=== PATIENT | male | born 1940 | race Caucasian/White ===

== ENCOUNTER 2017-12-10 20:48 | Inpatient (IN) ==
[2017-12-10 21:28] LABS: Bilirubin,Urine Negative (Negative); Blood,Urine Large (Negative); Clarity,Urine Cloudy (Clear); Color,Urine Yellow (Yellow); Glucose,Urine (UA) Normal (Normal); Ketones,Urine Negative (Negative); Leukocyte Esterase,Urine Trace (Negative); Nitrite,Urine Negative (Negative); Protein,Urine >=300 mg/dL (Neg-Trace); Specific Gravity,Urine >= 1.030 (1.010-1.025); Urobilinogen,Urine Normal (Normal)
[2017-12-10 21:36] LABS: Bacteria,Urine Moderate per hpf (None-Few); Hyaline Casts,Urine Few per lpf (None-Few); Mucus,Urine Moderate (Few); RBC,Urine TNTC per hpf (0-3); Squamous Epithelial Cell,Urine Few per lpf (None-Few)
[2017-12-10 21:37] LABS: WBC,Urine 15-30 per hpf (0-3)
[2017-12-10 21:39] LABS: Renal Epithelial Cells,Urine Few per hpf (None-Few)
--- NOTE | 2017-12-10 22:06 | Emergency Department Note ---
Disposition Clinical Impression: Dysuria, Hyponatremia CHF (congestive heart failure) Qualifiers: Heart failure type: other Qualified Code(s): I50.9 - Heart failure, unspecified Disposition: Admitted As Inpatient Condition: Undetermined Instructions: Heart Failure (ED), Hyponatremia (ED) Referrals: Adan Hamilton DO [Primary Care Provider] - Time of Disposition: 00:00 (Accepted by Dr Milton per family request states that they dont want to drive far to [place] and prefer to be at [place]) Male Urogenital HPI - General Chief complaint: ED General Medical Stated complaint: Decreased urine output, Dyspnea Source: family, EMS Mode of arrival: ambulatory Limitations: no limitations, altered mental status Nursing Notes Reviewed: Yes Vital Signs Reviewed: Yes - History of Present Illness HPI Narrative: Patient is a pleasant 77-year-old male with significant PMH for OH, HTN and dementia who is presenting to [facility] Emergency Room with a chief complaint off dysuria and puffiness of his eyes as well as abdominal distention. The patient daughter states that he was recently treated for pneumonia and was given antibiotics and steroids. She The him twice today and each time she retrieved on the 100 ml. He noticed that he has abdominal distension. Patient himself denies any pain or discomfort. He saw a dormitory keeper which cleared him for 6 month. Patient denies any fever or chills. Pt also denies any eye pain or visual disturbances. There is no sore throat or nasal or facial congestion. There is no chest pain or racing heart. No shortness of breath or cough. There is no abdominal pain, nausea, vomiting or diarrhea. No flank pain. There is no muskulo-skeletal pain, arthralgia or back pain. Patient also denies rash or pruritus. There is no neurological manifestations, no headache, no vertigo or weakness. The patient also denies any depression, hallucinations and there are no homicidal or suicidal ideations. There is no polyuria or polydipsia. There is no easy bruising or bleeding. Review of other systems is otherwise negative except above. Pt Subjective Complaint: dysuria, urinary retention Onset (ago): hour(s) Duration: intermittent Severity scale (1-10): 5 Quality: dull Improves with: none Worsens with: none - Related Data Home Medications Medication Instructions Recorded Confirmed Aspirin [Lo-Dose Aspirin EC] 81 mg PO DAILY 12/20/16 12/07/17 Atorvastatin [Lipitor] 40 mg PO HS 12/20/16 12/07/17 Ferrous Sulfate [Iron] 325 mg PO DAILY 12/20/16 12/07/17 Lisinopril [Zestril] 5 mg PO DAILY 12/20/16 12/07/17 Metoprolol Succinate/Hctz 1 each PO DAILY 12/20/16 12/07/17 [Metoprolol ER-Hctz 25-12.5 mg] Tamsulosin [Flomax] 0.4 mg PO DAILY 12/20/16 12/07/17 Previous Rx's Medication Instructions Recorded Cephalexin [Keflex] 500 mg PO TID #30 capsule 12/07/17 Ondansetron HCl [Zofran] 4 mg PO TID #15 tablet 12/07/17 PredniSONE [Deltasone] 20 mg PO DAILY #12 tablet 12/07/17 Allergies Allergy/AdvReac Type Severity Reaction Status Date / Time codeine Allergy Itching Verified 12/07/17 15:44 All systems ED: reviewed and negative except as stated. Review of Systems: As Per HPI Constitutional: Denies: fever, chills Eyes: Denies: eye pain, eye discharge ENT ED: Denies: ear pain, throat pain Cardiovascular: Denies: chest pain, palpitations Respiratory: Reports: cough, dyspnea Genitourinary: Reports: dysuria Musculoskeletal: Denies: back pain, neck pain Integumentary: Denies: abrasion, lesions Neurological: Denies: headache, weakness Past Medical History - Past Medical History Medical history: Reports: CVA, dementia, hypertension, myocardial infarction Surgical history: Reports: angioplasty/stent, pacemaker/AICD Psychiatric history: Reports: no psych history - Social History Smoking Status: Never smoker Smokeless Tobacco Status: No Alcohol use: Reports: none Drug use: Reports: none Physical Exam - General Limitations: altered mental status General appearance: alert - Head Head exam: normal inspection - Eye Eye exam: Present: normal appearance - ENT ENT exam: normal exam, normal oropharynx, mucous membranes moist, normal external ear exam - Neck Neck exam: Present: normal inspection, full ROM, trachea midline - Chest Chest inspection: Present: normal inspection, symmetric chest wall rise - Respiratory Respiratory exam: Present: normal lung sounds bilaterally, other (Diminished air entry) - Cardiovascular Cardiovascular exam: Present: regular rate, normal rhythm, normal heart sounds - Abdominal Exam Abdominal Exam: Present: soft, Non-Tender - Extremities Exam Extremities exam: Present: normal inspection, full ROM - Back Exam Back exam: Present: normal inspection, full ROM - Neurological Exam Neurological exam: Present: alert, oriented X3, normal gait - Psychiatric Psychiatric exam: Present: normal affect, normal mood - Skin Skin exam: Present: warm, dry, intact, normal color Course Vital Signs Temperature 97.9 F 12/10/17 20:59 Pulse Rate 92 12/10/17 20:59 Respiratory Rate 18 12/10/17 20:59 Blood Pressure 147/108 12/10/17 20:59 O2 Sat by Pulse Oximetry 95 12/10/17 20:59 Temperature 97.9 F 12/10/17 20:59 Pulse Rate 92 12/10/17 21:38 Respiratory Rate 18 12/10/17 21:38 Blood Pressure 142/76 12/10/17 21:38 O2 Sat by Pulse Oximetry 98 12/10/17 21:38 Oxygen Delivery Oxygen Delivery Nasal Cannula Urogenital-Male - MDM Narrative Medical decision making narrative: Stat Cardiopulmonary monitoring lasix IV Hold IVF fluids - Differential Diagnosis Likely: urinary tract infection, priapism, urethritis, epididymitis, acute urinary retention, inguinal hernia - Medical Records Medical records reviewed: Yes I reviewed the patient's medical records. - Lab Data Lab results reviewed: Yes I reviewed the patient's lab results. Lab Results 12/10/17 Range/Units 21:25 Urine Color Yellow (Yellow) Urine Clarity Cloudy A (Clear) Urine pH 6.0 (5.0-8.0) pH Units Ur Specific Hulbert >= 1.030 H (1.010-1.025) Urine Protein >=300 H (Neg-Trace) mg/dL Urine Glucose (UA) Normal (Normal) mg/dL Urine Ketones Negative (Negative) mg/dL Urine Blood Large H (Negative) Urine Nitrite Negative (Negative) Urine Bilirubin Negative (Negative) Urine Urobilinogen Normal (Normal) mg/dL Ur Leukocyte Esterase Trace H (Negative) Urine Microscopic RBC TNTC H (0-3) per hpf Urine Microscopic WBC 15-30 H (0-3) per hpf Ur Squamous Epith Cells Few (None-Few) per lpf Ur Renal Epithelial Cell Few (None-Few) per hpf Urine Bacteria Moderate H (None-Few) per hpf Hyaline Casts Few (None-Few) per lpf Urine Mucus Moderate H (Few) Ur Culture Indicated? YES A (NO) - Radiology Data Radiology results reviewed: Yes I reviewed the patient's radiology results.
[2017-12-10 22:11] LABS: Basophils % 0.1 %; Eosinophils % 0.1 %; Hematocrit 37.1 % (37.5-50.1); Hemoglobin 12.5 g/dL (12.9-16.9); Immature Granulocytes % 0.5 % (0-4); Lymphocytes # 0.7 K/mcL (0.6-4.6); Lymphocytes % 4.3 %; Mean Corpuscular HGB Conc 33.7 g/dL (31.6-35.5); Mean Corpuscular Hemoglobin 30.1 pg (28.0-33.3); Mean Corpuscular Volume 89.4 fL (83.0-100.0); Mean Platelet Volume 10.6 fL (9.4-12.4); Monocytes % 6.4 %; Neutrophils # 13.9 K/mcL (1.6-8.9); Nucleated Red Blood Cells 0.2 /100 WBC (0); Platelet Count 280 K/mcL (140-400); Red Blood Count 4.15 M/mcL (4.19-5.50); Red Cell Distribution Width 13.7 % (11.5-14.5); Segmented Neutrophils % 88.6 %
[2017-12-10] MEDS ORDERED: Ipratropium/Albuterol Neb 3 ML IH ONE (22:24)
[2017-12-10 22:31] LABS: Alanine Aminotransferase 177 Units/L (7-52); Albumin 3.7 g/dL (3.5-5.7); Albumin/Globulin Ratio 1.3 (1.1-2.2); Alkaline Phosphatase 94 Units/L (34-104); Aspartate Amino Transferase 80 Units/L (13-39); BUN/Creatinine Ratio 31 (6-26); Bilirubin,Total 0.6 mg/dL (0.3-1.0); Blood Urea Nitrogen 33 mg/dL (8-23); Calcium 8.9 mg/dL (8.6-10.3); Carbon Dioxide 27 mEq/L (23-29); Chloride 88 mEq/L (98-107); Globulin 2.9 g/dL (2.4-3.5); Glucose 163 mg/dL (70-105); Osmolality,Calculated 265 (280-300); Potassium 4.6 mEq/L (3.5-5.1); Sodium 122 mEq/L (136-145); Total Protein 6.6 g/dL (6.4-8.9); eGFR For African Americans > 60 (> 60); eGFR For Non-African Americans > 60 (> 60)
[2017-12-10] MEDS ORDERED: 0.9 % Sodium Chloride 1,000 ML IVC ONE (23:40)
[2017-12-10] MEDS ORDERED: Furosemide 40 MG/4 ML VIAL IVP ONE (23:53)
[2017-12-11] MEDS ORDERED: Naloxone 0.4 MG/ML INJ IVP PRN ×2 (00:33→01:49)
[2017-12-11 06:08] LABS: Basophils % 0.1 %; Hemoglobin 11.9 g/dL (12.9-16.9); Immature Granulocytes % 0.5 % (0-4); Lymphocytes # 0.8 K/mcL (0.6-4.6); Lymphocytes % 5.9 %; Mean Corpuscular HGB Conc 33.1 g/dL (31.6-35.5); Mean Corpuscular Volume 90.7 fL (83.0-100.0); Mean Platelet Volume 10.8 fL (9.4-12.4); Monocytes # 0.9 K/mcL (0.0-1.3); Monocytes % 6.7 %; Neutrophils # 11.2 K/mcL (1.6-8.9); Platelet Count 244 K/mcL (140-400); Red Blood Count 3.97 M/mcL (4.19-5.50); Red Cell Distribution Width 13.6 % (11.5-14.5); Segmented Neutrophils % 86.8 %
[2017-12-11 06:17] LABS: INR 1.2; Prothrombin Time 13.2 Seconds (9.4-12.1)
[2017-12-11 06:18] LABS: Activated Partial Thrombo Time 27.9 Seconds (26.0-36.0)
[2017-12-11 06:33] LABS: BUN/Creatinine Ratio 30 (6-26); Blood Urea Nitrogen 31 mg/dL (8-23); Calcium 8.6 mg/dL (8.6-10.3); Carbon Dioxide 32 mEq/L (23-29); Chloride 88 mEq/L (98-107); Glucose 114 mg/dL (70-105); Magnesium 2.1 mg/dL (1.6-2.6); Osmolality,Calculated 269 (280-300); Phosphorous 3.9 mg/dL (2.7-4.5); Potassium 4.1 mEq/L (3.5-5.1); Sodium 126 mEq/L (136-145); eGFR For African Americans > 60 (> 60); eGFR For Non-African Americans > 60 (> 60)
[2017-12-11] MEDS ORDERED: hydroCHLOROthiazide 25 MG TABLET PO SCH (09:00)
[2017-12-11] MEDS: Aspirin Enteric Coated 81 MG Tablet PO SCH (09:58)
[2017-12-11] MEDS: Ondansetron ODT 4 MG TAB.RAPDIS PO SCH ×3 (09:58→23:32)
[2017-12-11] MEDS: cephALEXin 500 MG CAPSULE PO SCH ×2 (09:58→17:33)
[2017-12-11] MEDS: Metoprolol XL (24 HR) Succ 25 MG TAB.ER.24H PO SCH (09:59)
--- NOTE | 2017-12-11 15:22 | Internal Med History&Physical ---
Date of Encounter: 12/11/17 Time of Encounter: 14:45 Assessment and Plan (1) CHF (congestive heart failure) Current visit: Yes Status: Acute He was given IV Lasix in emergency room. Echocardiogram will be done later today. Qualifiers: Heart failure type: other Qualified Code(s): I50.9 - Heart failure, unspecified (2) Neutrophilic leukocytosis Current visit: Yes Status: Acute Will start Rocephin and Zithromax with lactobacillus empirically. (3) Anemia Current visit: Yes Status: Acute We will order anemia testing in a.m. Qualifiers: Anemia type: unspecified type Qualified Code(s): D64.9 - Anemia, unspecified (4) Hematuria Current visit: Yes Status: Acute Urine culture has been ordered. Start antibiotics as per above. Qualifiers: Hematuria type: unspecified type Qualified Code(s): R31.9 - Hematuria, unspecified (5) Hyponatremia Current visit: Yes Status: Acute Suspect multifactorial etiology including diuretic use with underlying heart failure. Sodium now improved to 126. Recheck labs in a.. Internal Medicine - H&P: HPI Chief complaint: Decreased urine output, edema, dyspnea Admitted From: Emergency Dept Plans for Post Hospital Care: Home History of present illness: Mr. Nguyễn is a 77 year old male who came to emergency room after it was noted he had decreased urine output with significant weight gain slight edema, and dyspnea. He had been seen in a local urgent care December 07 and diagnosed with bilateral lower lobe pneumonia. He was prescribed Keflex and prednisone. His daughter who is a nurse noted decreased urine output and increased abdominal distention over the next 1-2 days. She inserted a Murray catheter yesterday but felt there was low urine output over the following hours. He was brought to emergency room and found to have significant hyponatremia, hematuria, heart failure and neutrophilic leukocytosis. He was admitted to [facility] floor for ongoing care needs. His cardiovascular history is significant for hypertension. He has known ASHD status post [place] 2000. He had V. tach/V. fib [?] requiring AICD placement approximately 2000. He has had 2 replacement units since the initial insertion. He has not had documented heart failure. He has had no further heart catheter since 2000. He has not had DVTs or pulmonary emboli. He is regularly mobile in the home using a Rollator walker. He denies pain at this time. He has minimal dyspnea at present. Past Med Surg Social Fam HX - Past Medical History Medical history: arthritis, CHF, CVA, dementia, hypertension, myocardial infarction Additional medical history: BPH Psychiatric history: no psych history - Past Surgical History Surgical History: angioplasty/stent, pacemaker/AICD - Social History Smoking Status: Never smoker Smokeless Tobacco Status: No Alcohol use: none Drug use: none Internal Medicine - H&P: Meds Aspirin [Lo-Dose Aspirin EC] 81 mg PO DAILY 12/20/16 [History] Atorvastatin [Lipitor] 40 mg PO HS 12/20/16 [History] Ferrous Sulfate [Iron] 325 mg PO DAILY 12/20/16 [History] Lisinopril [Zestril] 10 mg PO DAILY 12/20/16 [History] Metoprolol Succinate/Hctz [Metoprolol ER-Hctz 25-12.5 mg] 1 each PO DAILY [History] Tamsulosin [Flomax] 0.4 mg PO DAILY 12/20/16 [History] Cephalexin [Keflex] 500 mg PO TID #30 capsule 12/07/17 [Rx] Ondansetron HCl [Zofran] 4 mg PO TID #15 tablet 12/07/17 [Rx] PredniSONE [Deltasone] 20 mg PO DAILY #12 tablet 12/07/17 [Rx] 3 Allergy/AdvReac Type Severity Reaction Status Date / Time codeine Allergy Itching Verified 12/11/17 01:59 All Systems PM: A 10-system review of systems was performed and is negative for pertinent findings except as documented above in the HPI. Review of systems: Gen.: His weight is increased approximately 10-15 pounds in the past week. It had been stable previously. Cardiovascular: As per history of present illness Respiratory: He is a lifelong nonsmoker and has no known chronic lung disease GI: Denies disorders of his liver gallbladder or exocrine pancreas : He has BPH and is had occasional urinary retention. There are no other kidney bladder or prostate disorders. 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 He uses a Rollator walker for ambulation. There is no history of seizures. Endocrine: He has hyperlipidemia but no known diabetes or thyroid disease Hematology/oncology: He has history of anemia. There is no history of internal malignancies or other blood disorders Psychiatric: Denies anxiety depression or other mental health issues [place] skeletal: He has DJD but no gout or other bone joint or muscle disorders. - Constitutional Vitals: Temp Pulse Resp BP Pulse Ox 97.5 F L 79 16 119/78 97 12/11/17 14:24 12/11/17 14:24 12/11/17 14:24 12/11/17 14:24 12/11/17 14:24 Exam: Gen.: He is a well-developed well-nourished male who appears in minimal distress at present time. HEENT: Head is atraumatic and normocephalic except for slight right nasal labial fold flattening. Mouth: Mucosa is moist Neck: There is no thyromegaly or adenopathy noted. Heart: Regular without murmurs gallops or ectopics Lungs: No wheezes or crackles are heard. Abdomen: Soft and nontender. No masses or guarding are noted. Extremities: There is no cyanosis edema or clubbing noted. Dorsalis pedis and posterior tibial pulses are trace to 1+ palpable bilaterally. He has mild DJD changes of his hands. Neurologic: Mental status: He is able to answer a few questions. His daughter supplies most of the history. Cranial nerves: Smile shows slight asymmetry with slight right face weakness. Forehead wrinkles bilaterally. Tongue protrudes midline. EOMI. Motor: He does not hold his arms in outstretch pronated position well. He seems weak overall in his arms. Cerebellar: Finger to nose is fair to poor bilaterally. Skin: Warm and dry Internal Med - H&P Results - Labs CBC & Chem 7: 12/11/17 04:38 12/11/17 04:38 Labs: Short CBC 12/11/17 Range/Units 04:38 WBC 12.9 H (4.3-11.1) K/mcL Hgb 11.9 L (12.9-16.9) g/dL Hct 36.0 L (37.5-50.1) % Plt Count 244 (140-400) K/mcL Neutrophils # 11.2 H (1.6-8.9) K/mcL BMP 12/11/17 04:38 Sodium 126 L Potassium 4.1 Chloride 88 L Carbon Dioxide 32 H BUN 31 H Creatinine 1.05 Glucose 114 H Calcium 8.6
[2017-12-11] MEDS ORDERED: Azithromycin 500 MG in D5% in Water 250 ML IVPB SCH (16:00)
[2017-12-11] MEDS: cefTRIAXone 1,000 MG in Water for inj. (sterile) 20 ML 10 ML IVP SCH (17:59)
[2017-12-11] MEDS: Azithromycin 500 MG in D5% in Water 250 ML IVPB SCH (18:08)
[2017-12-11] MEDS ORDERED: *HR* Digoxin 0.125 MG TABLET PO SCH (19:00)
[2017-12-11] MEDS ORDERED: Isosorbide MONOnitrate (24 HR) 30 MG TAB.ER.24H PO SCH (19:00)
[2017-12-11] MEDS: Lactobacillus 1 EACH CAP.SPRINK PO SCH (20:41)
[2017-12-11] MEDS ORDERED: Furosemide 40 MG/4 ML VIAL IVP SCH (21:00)
[2017-12-11] MEDS: *HR* Digoxin 0.125 MG TABLET PO SCH (21:19)
[2017-12-11] MEDS: Furosemide 40 MG/4 ML VIAL IVP SCH (21:19)
[2017-12-11] MEDS: Isosorbide MONOnitrate (24 HR) 30 MG TAB.ER.24H PO SCH (21:21)
[2017-12-12 06:47] LABS: Basophils % 0.2 %; Eosinophils % 0.3 %; Hematocrit 35.6 % (37.5-50.1); Immature Granulocytes % 0.5 % (0-4); Lymphocytes # 0.9 K/mcL (0.6-4.6); Lymphocytes % 9.3 %; Mean Corpuscular HGB Conc 33.7 g/dL (31.6-35.5); Mean Corpuscular Hemoglobin 30.2 pg (28.0-33.3); Mean Corpuscular Volume 89.4 fL (83.0-100.0); Mean Platelet Volume 10.7 fL (9.4-12.4); Monocytes # 0.7 K/mcL (0.0-1.3); Monocytes % 7.5 %; Nucleated Red Blood Cells 0.4 /100 WBC (0); Platelet Count 267 K/mcL (140-400); Red Blood Count 3.98 M/mcL (4.19-5.50); Red Cell Distribution Width 13.6 % (11.5-14.5); Segmented Neutrophils % 82.2 %
[2017-12-12 06:59] LABS: Alanine Aminotransferase 130 Units/L (7-52); Albumin 3.4 g/dL (3.5-5.7); Albumin/Globulin Ratio 1.3 (1.1-2.2); Alkaline Phosphatase 92 Units/L (34-104); Aspartate Amino Transferase 42 Units/L (13-39); BUN/Creatinine Ratio 28 (6-26); Bilirubin,Total 0.6 mg/dL (0.3-1.0); Blood Urea Nitrogen 29 mg/dL (8-23); Calcium 8.7 mg/dL (8.6-10.3); Carbon Dioxide 32 mEq/L (23-29); Chloride 87 mEq/L (98-107); Globulin 2.6 g/dL (2.4-3.5); Glucose 100 mg/dL (70-105); Osmolality,Calculated 266 (280-300); Sodium 125 mEq/L (136-145); eGFR For African Americans > 60 (> 60); eGFR For Non-African Americans > 60 (> 60)
[2017-12-12 09:14] LABS: % Iron Saturation 10 % (20-55); Iron 34 mcg/dL (65-175); Transferrin 250 mg/dL (203-362)
[2017-12-12 09:32] LABS: Ferritin 82 ng/mL (20-250)
[2017-12-12 09:38] LABS: Folate 17.1 ng/mL (3.0-16.0)
[2017-12-12] MEDS: Lactobacillus 1 EACH CAP.SPRINK PO SCH ×2 (10:12→20:45)
[2017-12-12] MEDS: Isosorbide MONOnitrate (24 HR) 30 MG TAB.ER.24H PO SCH (10:12)
[2017-12-12] MEDS: Aspirin Enteric Coated 81 MG Tablet PO SCH (10:12)
[2017-12-12] MEDS: Ondansetron ODT 4 MG TAB.RAPDIS PO SCH ×3 (10:12→20:45)
[2017-12-12] MEDS: Furosemide 40 MG/4 ML VIAL IVP SCH ×2 (10:12→17:35)
[2017-12-12] MEDS: *HR* Digoxin 0.125 MG TABLET PO SCH (10:13)
[2017-12-12] MEDS: Metoprolol XL (24 HR) Succ 25 MG TAB.ER.24H PO SCH (10:13)
--- NOTE | 2017-12-12 11:13 | Internal Med Progress Note ---
Date of Encounter: 12/12/17 Time of Encounter: 11:00 - Assessment and plan (1) CHF (congestive heart failure) Current Visit: Yes Status: Acute Assessment and plan: December 12. LVEF was 10-15% on echo. AICD in place. He is now on IV Lasix and was started on Imdur and Lanoxin yesterday. Continue Toprol-XL. Will add low- dose ARB. Qualifiers: Heart failure type: other Qualified Code(s): I50.9 - Heart failure, unspecified (2) Neutrophilic leukocytosis Current Visit: Yes Status: Acute Assessment and plan: December 12. WBC normalized now with decreased left shift. Continue empiric Rocephin and Zithromax with lactobacillus. Urine culture showed no growth. (3) Anemia Current Visit: Yes Status: Acute Assessment and plan: Anemia testing showed iron 34, transferrin saturation 10%, transferrin 250, ferritin 82, B12 410, and folate 17.1. Hemoglobin stable at 12.0 today. Will start ferrous sulfate with vitamin C. Qualifiers: Anemia type: unspecified type Qualified Code(s): D64.9 - Anemia, unspecified (4) Hematuria Current Visit: Yes Status: Acute Assessment and plan: December 12. Urine culture showed no growth. Continue empiric antibiotics as per above. Qualifiers: Hematuria type: unspecified type Qualified Code(s): R31.9 - Hematuria, unspecified (5) Hyponatremia Current Visit: Yes Status: Acute Assessment and plan: December 12. Suspect multifactorial etiology. Continue to monitor. (6) Weakness Current Visit: Yes Status: Acute Assessment and plan: December 12. Will order PT and OT evaluation. - Subjective Interval history: December 12. He has no new complaints. He denies pain or dyspnea. - Constitutional Vitals: Temp Pulse Resp BP Pulse Ox 97.0 F L 85 16 119/88 99 12/12/17 10:20 12/12/17 10:20 12/12/17 10:20 12/12/17 10:20 12/12/17 10:20 Exam: He is resting comfortably in bed and appears in no acute distress. I reviewed his medications. I reviewed his pertinent lab results and echocardiogram report with patient and family. Internal Medicine: Result - Labs CBC & Chem 7: 12/12/17 06:10 12/12/17 06:10 Labs: Short CBC 12/12/17 Range/Units 06:10 WBC 9.8 (4.3-11.1) K/mcL Hgb 12.0 L (12.9-16.9) g/dL Hct 35.6 L (37.5-50.1) % Plt Count 267 (140-400) K/mcL Neutrophils # 8.0 (1.6-8.9) K/mcL BMP 12/12/17 06:10 Sodium 125 L Potassium 4.0 Chloride 87 L Carbon Dioxide 32 H BUN 29 H Creatinine 1.03 Glucose 100 Calcium 8.7 Liver Function 12/12/17 Range/Units 06:10 Total Bilirubin 0.6 (0.3-1.0) mg/dL AST 42 H (13-39) Units/L ALT 130 H (7-52) Units/L Alkaline Phosphatase 92 (34-104) Units/L Albumin 3.4 L (3.5-5.7) g/dL - ABG Interpretation ABG results: PT/INR, D-dimer PT 13.2 Seconds (9.4-12.1) H 12/11/17 04:38 Consult Discharge Plan - Plan Referrals: Adan Hamilton DO [Primary Care Provider] - 1 week
[2017-12-12] MEDS: cefTRIAXone 1,000 MG in Water for inj. (sterile) 20 ML 10 ML IVP SCH (17:27)
[2017-12-12] MEDS: Azithromycin 500 MG in D5% in Water 250 ML IVPB SCH (17:35)
[2017-12-12] MEDS ORDERED: Acetaminophen 325 MG TABLET PO PRN (23:07)
[2017-12-13] MEDS: Ascorbic Acid 500 MG TABLET PO SCH (06:15)
[2017-12-13] MEDS: Metoprolol XL (24 HR) Succ 25 MG TAB.ER.24H PO SCH (10:27)
[2017-12-13] MEDS: Isosorbide MONOnitrate (24 HR) 30 MG TAB.ER.24H PO SCH (10:27)
[2017-12-13] MEDS: Aspirin Enteric Coated 81 MG Tablet PO SCH (10:28)
[2017-12-13] MEDS: Furosemide 40 MG/4 ML VIAL IVP SCH ×2 (10:28→18:42)
[2017-12-13] MEDS: Lactobacillus 1 EACH CAP.SPRINK PO SCH ×2 (10:28→20:57)
[2017-12-13] MEDS: *HR* Digoxin 0.125 MG TABLET PO SCH (10:28)
[2017-12-13] MEDS: Ondansetron ODT 4 MG TAB.RAPDIS PO SCH ×3 (10:28→20:57)
--- NOTE | 2017-12-13 11:52 | Internal Med Progress Note ---
Date of Encounter: 12/13/17 Time of Encounter: 11:40 - Assessment and plan (1) CHF (congestive heart failure) Current Visit: Yes Status: Acute Assessment and plan: December 12. LVEF was 10-15% on echo. AICD in place. He is now on IV Lasix and was started on Imdur and Lanoxin yesterday. Continue Toprol-XL. Will add low- dose ARB. December 13. Clinically improved. Recheck labs in a.m. Qualifiers: Heart failure type: other Qualified Code(s): I50.9 - Heart failure, unspecified (2) Neutrophilic leukocytosis Current Visit: Yes Status: Acute Assessment and plan: December 12. WBC normalized now with decreased left shift. Continue empiric Rocephin and Zithromax with lactobacillus. Urine culture showed no growth. December 13. Recheck labs in a.m. (3) Anemia Current Visit: Yes Status: Acute Assessment and plan: December 12. Anemia testing showed iron 34, transferrin saturation 10%, transferrin 250, ferritin 82, B12 410, and folate 17.1. Hemoglobin stable at 12.0 today. Will start ferrous sulfate with vitamin C. December 13. Recheck labs in a.m. Qualifiers: Anemia type: unspecified type Qualified Code(s): D64.9 - Anemia, unspecified (4) Hematuria Current Visit: Yes Status: Acute Assessment and plan: December 12. Urine culture showed no growth. Continue empiric antibiotics as per above. Qualifiers: Hematuria type: unspecified type Qualified Code(s): R31.9 - Hematuria, unspecified (5) Hyponatremia Current Visit: Yes Status: Acute Assessment and plan: December 12. Suspect multifactorial etiology. Continue to monitor. December 13. Recheck labs in a.m. (6) Weakness Current Visit: Yes Status: Acute Assessment and plan: December 12. Will order PT and OT evaluation. - Subjective Interval history: December 12. He has no new complaints. He denies pain or dyspnea. December 13. He has no new complaints and feels better. - Constitutional Vitals: Temp Pulse Resp BP Pulse Ox 98.2 F 81 17 122/79 94 12/13/17 10:57 12/13/17 10:57 12/13/17 10:57 12/13/17 10:57 12/13/17 10:57 Exam: He is resting comfortably in bed and appears in no acute distress. His affect is bright and cheerful. Extremities show no edema. I reviewed his medications and lab results. Internal Medicine: Result - Labs CBC & Chem 7: 12/12/17 06:10 12/12/17 06:10 - ABG Interpretation ABG results: PT/INR, D-dimer PT 13.2 Seconds (9.4-12.1) H 12/11/17 04:38 Consult Discharge Plan - Plan Referrals: Adan Hamilton DO [Primary Care Provider] - 1 week
[2017-12-13] MEDS: cefTRIAXone 1,000 MG in Water for inj. (sterile) 20 ML 10 ML IVP SCH (18:42)
[2017-12-13] MEDS: Azithromycin 500 MG in D5% in Water 250 ML IVPB SCH (18:43)
[2017-12-14 05:34] LABS: Basophils % 0.2 %; Eosinophils # 0.2 K/mcL (0.0-0.6); Eosinophils % 2.7 %; Hematocrit 37.8 % (37.5-50.1); Hemoglobin 12.7 g/dL (12.9-16.9); Immature Granulocytes % 0.4 % (0-4); Lymphocytes % 11.2 %; Mean Corpuscular HGB Conc 33.6 g/dL (31.6-35.5); Mean Corpuscular Hemoglobin 30.2 pg (28.0-33.3); Monocytes # 0.7 K/mcL (0.0-1.3); Monocytes % 7.3 %; Platelet Count 264 K/mcL (140-400); Red Cell Distribution Width 13.7 % (11.5-14.5); Segmented Neutrophils % 78.2 %
[2017-12-14 05:53] LABS: Blood Urea Nitrogen 20 mg/dL (8-23); Calcium 8.5 mg/dL (8.6-10.3); Carbon Dioxide 35 mEq/L (23-29); Chloride 85 mEq/L (98-107); Digoxin 0.5 ng/mL (0.8-2.0); Glucose 98 mg/dL (70-105); Osmolality,Calculated 267 (280-300); Potassium 3.4 mEq/L (3.5-5.1); Sodium 127 mEq/L (136-145)
[2017-12-14] MEDS: Ascorbic Acid 500 MG TABLET PO SCH (06:35)
[2017-12-14 06:48] LABS: BUN/Creatinine Ratio 22 (6-26); eGFR For African Americans > 60 (> 60); eGFR For Non-African Americans > 60 (> 60)
[2017-12-14] MEDS: Ondansetron ODT 4 MG TAB.RAPDIS PO SCH (08:17)
[2017-12-14] MEDS: Aspirin Enteric Coated 81 MG Tablet PO SCH (08:17)
[2017-12-14] MEDS: Metoprolol XL (24 HR) Succ 25 MG TAB.ER.24H PO SCH (08:17)
[2017-12-14] MEDS: *HR* Digoxin 0.125 MG TABLET PO SCH (08:17)
[2017-12-14] MEDS: Lactobacillus 1 EACH CAP.SPRINK PO SCH (08:17)
[2017-12-14] MEDS: Isosorbide MONOnitrate (24 HR) 30 MG TAB.ER.24H PO SCH (08:18)
[2017-12-14] MEDS: Furosemide 40 MG/4 ML VIAL IVP SCH (08:18)
--- NOTE | 2017-12-14 11:10 | Discharge Summary ---
Date of Encounter: 12/14/17 Time of Encounter: 10:55 - Discharge Diagnosis (1) CHF (congestive heart failure) Priority: Primary Status: Acute Qualifiers: Heart failure type: other Qualified Code(s): I50.9 - Heart failure, unspecified (2) Neutrophilic leukocytosis Priority: Secondary Status: Resolved (3) Anemia Priority: Secondary Status: Acute Qualifiers: Anemia type: unspecified type Qualified Code(s): D64.9 - Anemia, unspecified (4) Hematuria Priority: Secondary Status: Acute Qualifiers: Hematuria type: unspecified type Qualified Code(s): R31.9 - Hematuria, unspecified (5) Hyponatremia Priority: Secondary Status: Acute (6) Weakness Priority: Secondary Status: Acute Hospital course: Mr. Nguyễn is a 77 year old male who came to emergency room after it was noted he had decreased urine output with significant weight gain slight edema, and dyspnea. He had been seen in a local urgent care December 07 and diagnosed with bilateral lower lobe pneumonia. He was prescribed Keflex and prednisone. His daughter who is a nurse noted decreased urine output and increased abdominal distention over the next 1-2 days. She inserted a Murray catheter yesterday but felt there was low urine output over the following hours. He was brought to emergency room and found to have significant hyponatremia, hematuria, heart failure and neutrophilic leukocytosis. He was admitted to [facility] for ongoing care needs. Initial orders were written by the emergency room physician. I saw him on December 11 and performed the history and physical. He was started on IV Lasix. An echocardiogram was ordered to further evaluate. The echo showed LVEF of 10-15% with severe global LV systolic dysfunction. There was indeterminate diastolic function. There was [id number] mitral regurgitation, severe tricuspid regurgitation, and severe pulmonary hypertension with RVSP estimated at 69-74 mmHg. He was started on IV Lasix, Lanoxin, Imdur, and Cozaar. Toprol was continued. He had clinical improvement with decreased dyspnea and excellent urine output. Sodium jass to 127. Creatinine improved to 0.90. His BNP peptide jass to 4122. This will be monitored in swing bed. He was started empirically on Rocephin and Zithromax with lactobacillus. Urine culture showed no growth. His WBC normalized and left shift essential resolved by day of discharge to swing bed. He will continue with IV antibiotics and probiotic for 2 additional days in swing bed. Anemia testing showed iron 34, transferrin saturation 10%, transferrin 250, ferritin 82, B12 410, and folate 17.1. Hemoglobin had risen to 12.7 by day of discharge. Physical therapy and occupational therapy evaluations with ongoing interventions were done. On December 14 he was stable for discharge to swing bed for ongoing care needs. He will be started on Proscar and continued on Flomax. Murray catheter will be discontinued in 1-2 days. - Time Spent with Patient Total time spent providing and/or coordinating discharge services: - Discharge Medications Prescriptions: Bumetanide [Bumex] 1 mg PO DAILY 365 Days tablet Finasteride [Proscar] 5 mg PO DAILY 365 Days tablet Potassium Chloride 10 meq PO DAILY 365 Days tab.er.prt Home Medications: Aspirin [Lo-Dose Aspirin EC] 81 mg PO DAILY 12/20/16 [History] Atorvastatin [Lipitor] 40 mg PO HS 12/20/16 [History] Ferrous Sulfate [Iron] 325 mg PO DAILY 12/20/16 [History] Tamsulosin [Flomax] 0.4 mg PO DAILY 12/20/16 [History] Ondansetron HCl [Zofran] 4 mg PO TID #15 tablet 12/07/17 [Rx] Azithromycin [Zithromax] 500 mg IVPB Q24H 2 Days vial 12/14/17 [Rx] Bumetanide [Bumex] 1 mg PO DAILY 365 Days tablet 12/14/17 [Rx] Digoxin [Lanoxin] 0.125 mg PO DAILY tablet 12/14/17 [Rx] Finasteride [Proscar] 5 mg PO DAILY 365 Days tablet 12/14/17 [Rx] Isosorbide MONOnitrate (24 HR) [Imdur] 30 mg PO DAILY tab.er.24h 12/14/17 [Rx] Lactobacillus [Culturelle] 1 each PO BID 2 Days cap.sprink 12/14/17 [Rx] Losartan [Cozaar] 12.5 mg PO DAILY tablet 12/14/17 [Rx] Metoprolol XL (24 HR) Succ [Toprol Xl] 25 mg PO DAILY tab.er.24h 12/14/17 [Rx] Potassium Chloride 10 meq PO DAILY 365 Days tab.er.prt 12/14/17 [Rx] cefTRIAXone [Rocephin] 1,000 mg IVP Q24H 2 Days vial 12/14/17 [Rx] Allergies/Adverse Reactions: 3 Allergy/AdvReac Type Severity Reaction Status Date / Time codeine Allergy Itching Verified 12/11/17 01:59 Date of admission: 12/11/17 15:33 Primary care physician: Adan Hamilton DO Consults: 12/12/17 11:17 Consult to Occupational Therapy [CONS] Routine Comment: Evaluate, develop and implement POC Reason for Consult: Weakness Does patient have active BEDREST order?: No Is patient medically & hemodynamically stable?: Yes Patient assessed for mobility or mobilized this visit?: Yes Consult to Physical Therapy [CONS] Routine Comment: Evaluate, develop and implement POC Reason for Consult: Weakness Does patient have active BEDREST order?: No Is patient medically & hemodynamically stable?: Yes Patient assessed for mobility or mobilized this visit?: Yes - Constitutional Vitals: Temp Pulse Resp BP Pulse Ox 97.2 F L 73 16 117/78 98 12/14/17 07:39 12/14/17 07:39 12/14/17 07:39 12/14/17 07:39 12/14/17 07:39 - Patient Status Disposition: Transfer Hospital Swing Bed Condition: Undetermined - Discharge Instructions Follow Up With: Adan Hamilton DO [Primary Care Provider] - 1 week - Diet and Activity Activity: as per physical therapy Diet: low salt diet
[2017-12-14 11:37] VITALS: BP 108/64
== END 2017-12-14 13:34 | disposition other institution (70) | DRG 292 ==
LOC: INPPIK 20:48 → EMEROOPIK 20:48 → INPPIK 12-11 01:20
PROVIDERS: ADMIT Internal Medicine; ATTEND Internal Medicine

== ENCOUNTER 2017-12-14 13:33 | Inpatient (IN) ==
[2017-12-14] MEDS ORDERED: Azithromycin 500 MG VIAL IVPB SCH (15:00)
[2017-12-14] MEDS ORDERED: CefTRIAXone 1,000 MG VIAL IVP SCH (15:00)
[2017-12-14] MEDS: cefTRIAXone 1,000 MG in Water for inj. (sterile) 20 ML 10 ML IVPB SCH (17:19)
[2017-12-14] MEDS: Ondansetron ODT 4 MG TAB.RAPDIS PO SCH ×2 (17:23→20:28)
[2017-12-14] MEDS: Azithromycin 500 MG in D5% in Water 250 ML IVPB SCH (18:46)
[2017-12-14] MEDS: Lactobacillus 1 EACH CAP.SPRINK PO SCH (20:28)
[2017-12-15] MEDS: Isosorbide MONOnitrate (24 HR) 30 MG TAB.ER.24H PO SCH (08:08)
[2017-12-15] MEDS: Aspirin Enteric Coated 81 MG Tablet PO SCH (08:08)
[2017-12-15] MEDS: Ondansetron ODT 4 MG TAB.RAPDIS PO SCH ×3 (08:08→20:20)
[2017-12-15] MEDS: Lactobacillus 1 EACH CAP.SPRINK PO SCH ×2 (08:09→20:20)
[2017-12-15] MEDS: Metoprolol XL (24 HR) Succ 25 MG TAB.ER.24H PO SCH (08:09)
[2017-12-15] MEDS: *HR* Digoxin 0.125 MG TABLET PO SCH (08:09)
[2017-12-15] MEDS: cefTRIAXone 1,000 MG in Water for inj. (sterile) 20 ML 10 ML IVPB SCH (16:35)
[2017-12-15] MEDS: Azithromycin 500 MG in D5% in Water 250 ML IVPB SCH (18:41)
[2017-12-16 06:32] LABS: Basophils # 0.1 K/mcL (0.0-0.2); Basophils % 0.5 %; Eosinophils # 0.2 K/mcL (0.0-0.6); Eosinophils % 1.8 %; Hematocrit 39.1 % (37.5-50.1); Hemoglobin 13.1 g/dL (12.9-16.9); Immature Granulocytes % 0.4 % (0-4); Lymphocytes % 9.9 %; Mean Corpuscular HGB Conc 33.5 g/dL (31.6-35.5); Mean Corpuscular Hemoglobin 30.3 pg (28.0-33.3); Mean Corpuscular Volume 90.3 fL (83.0-100.0); Mean Platelet Volume 9.7 fL (9.4-12.4); Monocytes # 0.6 K/mcL (0.0-1.3); Monocytes % 5.8 %; Neutrophils # 8.5 K/mcL (1.6-8.9); Platelet Count 276 K/mcL (140-400); Red Blood Count 4.33 M/mcL (4.19-5.50); Red Cell Distribution Width 13.7 % (11.5-14.5); Segmented Neutrophils % 81.6 %
[2017-12-16 06:53] LABS: BUN/Creatinine Ratio 18 (6-26); Blood Urea Nitrogen 16 mg/dL (8-23); Carbon Dioxide 33 mEq/L (23-29); Chloride 87 mEq/L (98-107); Digoxin 0.6 ng/mL (0.8-2.0); Glucose 109 mg/dL (70-105); Osmolality,Calculated 268 (280-300); Potassium 3.7 mEq/L (3.5-5.1); Sodium 128 mEq/L (136-145); eGFR For African Americans > 60 (> 60); eGFR For Non-African Americans > 60 (> 60)
[2017-12-16] MEDS: Aspirin Enteric Coated 81 MG Tablet PO SCH (07:41)
[2017-12-16] MEDS: *HR* Digoxin 0.125 MG TABLET PO SCH (07:41)
[2017-12-16] MEDS: Isosorbide MONOnitrate (24 HR) 30 MG TAB.ER.24H PO SCH (07:41)
[2017-12-16] MEDS: Ondansetron ODT 4 MG TAB.RAPDIS PO SCH ×3 (07:41→20:46)
[2017-12-16] MEDS: Lactobacillus 1 EACH CAP.SPRINK PO SCH (07:41)
[2017-12-16] MEDS: Metoprolol XL (24 HR) Succ 25 MG TAB.ER.24H PO SCH (07:43)
--- NOTE | 2017-12-16 13:21 | Internal Med Progress Note ---
Date of Encounter: 12/16/17 Time of Encounter: 13:10 - Assessment and plan (1) CHF (congestive heart failure) Current Visit: No Status: Chronic Assessment and plan: December 16. Continue Toprol, losartan, Imdur and Lanoxin Qualifiers: Heart failure type: combined systolic and diastolic Heart failure chronicity: chronic Qualified Code(s): I50.42 - Chronic combined systolic ( congestive) and diastolic (congestive) heart failure (2) Hyponatremia Current Visit: No Status: Acute Assessment and plan: December 16. Improved. Continue present regimen (3) Anemia Current Visit: No Status: Acute Assessment and plan: December 16. Hemoglobin further improved to 13.1. Continue present regimen. Qualifiers: Anemia type: unspecified type Qualified Code(s): D64.9 - Anemia, unspecified (4) Hematuria Current Visit: No Status: Acute Assessment and plan: December 16. Hemoglobin normalized. Urine culture showed no growth in acute-care stay. Will discontinue Murray and monitor. Qualifiers: Hematuria type: unspecified type Qualified Code(s): R31.9 - Hematuria, unspecified (5) Weakness Current Visit: No Status: Acute Assessment and plan: December 16. Continue therapy interventions. - Subjective Interval history: December 16. He has no new complaints. He feels his abdomen is large but is not having pain. He states he is still dyspneic. - Constitutional Vitals: Temp Pulse Resp BP Pulse Ox 97.8 F 82 18 125/84 94 12/16/17 07:12 12/16/17 07:12 12/16/17 07:12 12/16/17 07:12 12/16/17 07:12 Exam: He is sitting on the side of bed resting comfortably. He does not appear dyspneic. Lungs are clear with diminished breath sounds diffusely. Heart is regular without murmurs gallops or ectopics. His abdomen does not look distended. I reviewed his medications and lab results. Internal Medicine: Result - Labs CBC & Chem 7: 12/16/17 05:55 12/16/17 05:55 Labs: Short CBC 12/16/17 Range/Units 05:55 WBC 10.4 (4.3-11.1) K/mcL Hgb 13.1 (12.9-16.9) g/dL Hct 39.1 (37.5-50.1) % Plt Count 276 (140-400) K/mcL Neutrophils # 8.5 (1.6-8.9) K/mcL BMP 12/16/17 05:55 Sodium 128 L Potassium 3.7 Chloride 87 L Carbon Dioxide 33 H BUN 16 Creatinine 0.87 Glucose 109 H Calcium 9.0 Consult Discharge Plan - Plan Referrals: Adan Hamilton, [Primary Care Provider] - 1 week
[2017-12-16] MEDS ORDERED: Isosorbide MONOnitrate (24 HR) 30 MG TAB.ER.24H PO SCH (13:33)
[2017-12-16] MEDS: *HR* Digoxin 0.25 MG TABLET PO SCH (14:46)
[2017-12-17] MEDS: Finasteride 5 MG TABLET PO SCH (10:24)
[2017-12-17] MEDS: Metoprolol XL (24 HR) Succ 25 MG TAB.ER.24H PO SCH (10:24)
[2017-12-17] MEDS: Aspirin Enteric Coated 81 MG Tablet PO SCH (10:25)
[2017-12-17] MEDS: *HR* Digoxin 0.25 MG TABLET PO SCH (10:25)
[2017-12-17] MEDS: Ondansetron ODT 4 MG TAB.RAPDIS PO SCH ×3 (10:25→19:52)
[2017-12-18] MEDS: Metoprolol XL (24 HR) Succ 25 MG TAB.ER.24H PO SCH (08:49)
[2017-12-18] MEDS: Aspirin Enteric Coated 81 MG Tablet PO SCH (08:49)
[2017-12-18] MEDS: Finasteride 5 MG TABLET PO SCH (08:49)
[2017-12-18] MEDS: Isosorbide MONOnitrate (24 HR) 60 MG TAB.ER.24H PO SCH (08:49)
[2017-12-18] MEDS: *HR* Digoxin 0.25 MG TABLET PO SCH (08:50)
[2017-12-18] MEDS: Ondansetron ODT 4 MG TAB.RAPDIS PO SCH ×3 (08:50→20:50)
[2017-12-18] MEDS: Bumetanide 1 MG TABLET PO SCH (11:48)
--- NOTE | 2017-12-18 15:59 | Internal Med Progress Note ---
Date of Encounter: 12/18/17 Time of Encounter: 15:50 - Assessment and plan (1) CHF (congestive heart failure) Current Visit: No Status: Chronic Assessment and plan: December 16. Continue Toprol, losartan, Imdur and Lanoxin December 18. Continue present regimen. Recheck labs in a.m. Qualifiers: Heart failure type: combined systolic and diastolic Heart failure chronicity: chronic Qualified Code(s): I50.42 - Chronic combined systolic ( congestive) and diastolic (congestive) heart failure (2) Hyponatremia Current Visit: No Status: Acute Assessment and plan: December 16. Improved. Continue present regimen December 18. Recheck labs in a.m. (3) Anemia Current Visit: No Status: Acute Assessment and plan: December 16. Hemoglobin further improved to 13.1. Continue present regimen. Qualifiers: Anemia type: unspecified type Qualified Code(s): D64.9 - Anemia, unspecified (4) Hematuria Current Visit: No Status: Acute Assessment and plan: December 16. Hemoglobin normalized. Urine culture showed no growth in acute-care stay. Will discontinue Murray and monitor. Qualifiers: Hematuria type: unspecified type Qualified Code(s): R31.9 - Hematuria, unspecified (5) Weakness Current Visit: No Status: Acute Assessment and plan: December 16. Continue therapy interventions. December 18. Anticipate discharge home in 2-3 days. - Subjective Interval history: December 16. He has no new complaints. He feels his abdomen is large but is not having pain. He states he is still dyspneic. December 18. He denies pain but states he is still having some dyspnea. - Constitutional Vitals: Temp Pulse Resp BP Pulse Ox 97.3 F L 84 16 122/69 97 12/18/17 07:00 12/18/17 07:00 12/18/17 07:00 12/18/17 07:00 12/18/17 07:00 Exam: He is resting comfortably in bed. He is not wearing oxygen at present time. Extremities show no edema. Lungs are clear. Heart is regular without murmurs gallops or ectopics. I reviewed his medications and lab results. Internal Medicine: Result - Labs CBC & Chem 7: 12/16/17 05:55 12/16/17 05:55 Consult Discharge Plan - Plan Referrals: Adan Hamilton, DO [Primary Care Provider] - 1 week
[2017-12-19 05:14] LABS: Basophils % 0.3 %; Eosinophils # 0.1 K/mcL (0.0-0.6); Eosinophils % 1.2 %; Hematocrit 37.5 % (37.5-50.1); Hemoglobin 12.4 g/dL (12.9-16.9); Immature Granulocytes % 0.4 % (0-4); Lymphocytes # 0.9 K/mcL (0.6-4.6); Mean Corpuscular HGB Conc 33.1 g/dL (31.6-35.5); Mean Corpuscular Hemoglobin 29.6 pg (28.0-33.3); Mean Corpuscular Volume 89.5 fL (83.0-100.0); Mean Platelet Volume 10.3 fL (9.4-12.4); Monocytes # 0.6 K/mcL (0.0-1.3); Monocytes % 6.1 %; Neutrophils # 7.6 K/mcL (1.6-8.9); Platelet Count 268 K/mcL (140-400); Red Blood Count 4.19 M/mcL (4.19-5.50); Red Cell Distribution Width 13.7 % (11.5-14.5)
[2017-12-19 05:40] LABS: BUN/Creatinine Ratio 22 (6-26); Blood Urea Nitrogen 20 mg/dL (8-23); Carbon Dioxide 28 mEq/L (23-29); Chloride 91 mEq/L (98-107); Digoxin 1.7 ng/mL (0.8-2.0); Glucose 109 mg/dL (70-105); Osmolality,Calculated 269 (280-300); Potassium 4.3 mEq/L (3.5-5.1); Sodium 128 mEq/L (136-145); eGFR For African Americans > 60 (> 60); eGFR For Non-African Americans > 60 (> 60)
[2017-12-19] MEDS: Aspirin Enteric Coated 81 MG Tablet PO SCH (07:49)
[2017-12-19] MEDS: Finasteride 5 MG TABLET PO SCH (07:49)
[2017-12-19] MEDS: Bumetanide 1 MG TABLET PO SCH (07:50)
[2017-12-19] MEDS: Metoprolol XL (24 HR) Succ 25 MG TAB.ER.24H PO SCH (07:50)
[2017-12-19] MEDS: Isosorbide MONOnitrate (24 HR) 60 MG TAB.ER.24H PO SCH (07:51)
[2017-12-19] MEDS: *HR* Digoxin 0.25 MG TABLET PO SCH (07:51)
[2017-12-19] MEDS: Ondansetron ODT 4 MG TAB.RAPDIS PO SCH ×3 (07:52→21:15)
[2017-12-20] MEDS: Ondansetron ODT 4 MG TAB.RAPDIS PO SCH (10:10)
[2017-12-20] MEDS: Metoprolol XL (24 HR) Succ 25 MG TAB.ER.24H PO SCH (10:10)
[2017-12-20] MEDS: Aspirin Enteric Coated 81 MG Tablet PO SCH (10:10)
[2017-12-20] MEDS: Bumetanide 1 MG TABLET PO SCH (10:11)
[2017-12-20] MEDS: *HR* Digoxin 0.25 MG TABLET PO SCH (10:11)
[2017-12-20] MEDS: Finasteride 5 MG TABLET PO SCH (10:12)
[2017-12-20] MEDS: Isosorbide MONOnitrate (24 HR) 60 MG TAB.ER.24H PO SCH (10:12)
[2017-12-20] MEDS ORDERED: Ondansetron ODT 4 MG TAB.RAPDIS SL PRN (11:39)
--- NOTE | 2017-12-20 14:14 | Internal Med Progress Note ---
Date of Encounter: 12/20/17 Time of Encounter: 14:00 - Assessment and plan (1) CHF (congestive heart failure) Current Visit: No Status: Chronic Assessment and plan: December 16. Continue Toprol, losartan, Imdur and Lanoxin December 18. Continue present regimen. Recheck labs in a.m. December 20. BN peptide minimally changed yesterday at 3864. Continue present regimen. Qualifiers: Heart failure type: combined systolic and diastolic Heart failure chronicity: chronic Qualified Code(s): I50.42 - Chronic combined systolic ( congestive) and diastolic (congestive) heart failure (2) Hyponatremia Current Visit: No Status: Acute Assessment and plan: December 16. Improved. Continue present regimen December 18. Recheck labs in a.m. December 20. Stable. (3) Anemia Current Visit: No Status: Acute Assessment and plan: December 16. Hemoglobin further improved to 13.1. Continue present regimen. Qualifiers: Anemia type: unspecified type Qualified Code(s): D64.9 - Anemia, unspecified (4) Hematuria Current Visit: No Status: Acute Assessment and plan: December 16. Hemoglobin normalized. Urine culture showed no growth in acute-care stay. Will discontinue Murray and monitor. Qualifiers: Hematuria type: unspecified type Qualified Code(s): R31.9 - Hematuria, unspecified (5) Weakness Current Visit: No Status: Acute Assessment and plan: December 16. Continue therapy interventions. December 18. Anticipate discharge home in 2-3 days. December 20. Anticipate discharge home in a.m. - Subjective Interval history: December 16. He has no new complaints. He feels his abdomen is large but is not having pain. He states he is still dyspneic. December 18. He denies pain but states he is still having some dyspnea. December 18. He reports some mild discomfort in his abdomen. He has no other new complaints. - Constitutional Vitals: Temp Pulse Resp BP Pulse Ox 97.6 F 89 16 148/102 93 12/20/17 06:58 12/20/17 06:58 12/20/17 06:58 12/20/17 06:58 12/20/17 06:58 Exam: He is resting comfortably in bed and appears in no acute distress. Abdomen is soft and nontender to palpation. Bowel sounds are present. Extremities show no pitting edema. I reviewed his medications and lab results. Internal Medicine: Result - Labs CBC & Chem 7: 12/19/17 04:15 12/19/17 04:15 Consult Discharge Plan - Plan Referrals: Adan Hamilton DO [Primary Care Provider] - 1 week
[2017-12-21] MEDS: Bumetanide 1 MG TABLET PO SCH (08:30)
[2017-12-21] MEDS: Metoprolol XL (24 HR) Succ 25 MG TAB.ER.24H PO SCH (08:30)
[2017-12-21] MEDS: *HR* Digoxin 0.25 MG TABLET PO SCH (08:30)
[2017-12-21] MEDS: Finasteride 5 MG TABLET PO SCH (08:30)
[2017-12-21] MEDS: Isosorbide MONOnitrate (24 HR) 60 MG TAB.ER.24H PO SCH (08:30)
[2017-12-21] MEDS: Aspirin Enteric Coated 81 MG Tablet PO SCH (08:30)
[2017-12-21 11:12] VITALS: BP 139/93
--- NOTE | 2017-12-21 11:59 | Discharge Summary ---
Date of Encounter: 12/21/17 Time of Encounter: 11:48 - Discharge Diagnosis (1) CHF (congestive heart failure) Priority: Primary Status: Chronic Qualifiers: Heart failure type: combined systolic and diastolic Heart failure chronicity: chronic Qualified Code(s): I50.42 - Chronic combined systolic ( congestive) and diastolic (congestive) heart failure (2) Hyponatremia Priority: Secondary Status: Acute (3) Anemia Priority: Secondary Status: Acute Qualifiers: Anemia type: unspecified type Qualified Code(s): D64.9 - Anemia, unspecified (4) Hematuria Priority: Secondary Status: Acute Qualifiers: Hematuria type: unspecified type Qualified Code(s): R31.9 - Hematuria, unspecified (5) Weakness Priority: Secondary Status: Acute Hospital course: Mr. Nguyễn is a 77 year old male who was hospitalized in acute care December 10- after presenting with weight gain edema and dyspnea. echocardiogram showed LVEF 10-15%. Medications were adjusted. Therapy intervention was done and it was felt to benefit from swing bed stay. He progressed satisfactorily in swing bed. Murray catheter was discontinued and he was able to void spontaneously. Flomax will be increased further at discharge. He was started on Proscar during his acute care stay. Medications were adjusted but there was little improvement in his BN peptide. Symptomatically however he improved and was not manifesting dyspnea at discharge. He will be discharged home and follow with his PCP Dr. Hamilton within 1 week. - Time Spent with Patient Total time spent providing and/or coordinating discharge services: - Discharge Medications Prescriptions: Bumetanide [Bumex] 1 mg PO DAILY #30 tablet Digoxin [Lanoxin] 0.125 mg PO DAILY #30 tablet Finasteride [Proscar] 5 mg PO DAILY #30 tablet Isosorbide MONOnitrate (24 HR) [Imdur] 60 mg PO DAILY #30 tab.er.24h Losartan [Cozaar] 25 mg PO DAILY #30 tablet Metoprolol XL (24 HR) Succ [Toprol Xl] 25 mg PO DAILY #30 tab.er.24h Potassium Chloride 10 meq PO DAILY #30 tab.er.prt Tamsulosin [Flomax] 0.8 mg PO DAILY #60 capsule Home Medications: Aspirin [Lo-Dose Aspirin EC] 81 mg PO DAILY 12/20/16 [History] Atorvastatin [Lipitor] 40 mg PO HS 12/20/16 [History] Ferrous Sulfate [Iron] 325 mg PO DAILY 12/20/16 [History] Ondansetron HCl [Zofran] 4 mg PO TID #15 tablet 12/07/17 [Rx] Bumetanide [Bumex] 1 mg PO DAILY 365 Days tablet 12/14/17 [Rx] Finasteride [Proscar] 5 mg PO DAILY 365 Days tablet 12/14/17 [Rx] Bumetanide [Bumex] 1 mg PO DAILY #30 tablet 12/21/17 [Rx] Digoxin [Lanoxin] 0.125 mg PO DAILY #30 tablet 12/21/17 [Rx] Ferrous Sulfate 325 mg PO DAILY@0800 tablet 12/21/17 [Rx] Finasteride [Proscar] 5 mg PO DAILY #30 tablet 12/21/17 [Rx] Isosorbide MONOnitrate (24 HR) [Imdur] 60 mg PO DAILY #30 tab.er.24h 12/21/17 [ Rx] Losartan [Cozaar] 25 mg PO DAILY #30 tablet 12/21/17 [Rx] Metoprolol XL (24 HR) Succ [Toprol Xl] 25 mg PO DAILY #30 tab.er.24h 12/21/17 [ Rx] Potassium Chloride 10 meq PO DAILY #30 tab.er.prt 12/21/17 [Rx] Tamsulosin [Flomax] 0.8 mg PO DAILY #60 capsule 12/21/17 [Rx] Allergies/Adverse Reactions: 3 Allergy/AdvReac Type Severity Reaction Status Date / Time codeine Allergy Itching Verified 12/11/17 01:59 Date of admission: 12/14/17 14:12 Primary care physician: Adan Hamilton, Consults: 12/14/17 16:45 Consult to Physical Therapy [CONS] Routine Comment: Evaluate, develop and implement POC Reason for Consult: weakness Does patient have active BEDREST order?: No Is patient medically & hemodynamically stable?: Yes OT [Consult to Occupational Therapy] [CONS] Routine Comment: Evaluate, develop and implement POC Reason for Consult: weakness Does patient have active BEDREST order?: No Is patient medically & hemodynamically stable?: Yes - Constitutional Vitals: Temp Pulse Resp BP Pulse Ox 97.8 F 86 18 139/93 93 12/21/17 09:00 12/21/17 09:00 12/21/17 09:00 12/21/17 09:00 12/21/17 09:00 - Patient Status Disposition: Home Health Service - Discharge Instructions Follow Up With: Adan Hamilton DO [Primary Care Provider] - 1 week - Diet and Activity Activity: resume usual activities as tolerated Diet: advance to your usual diet
--- NOTE | 2017-12-21 12:03 | Physician Discharge Referral ---
Home Health/Hosp Referral Info Transfer to: Home Health Attending Provider: Yoan Provider in Charge Post Discharge: PCP (Alfonso) - Diagnosis (1) CHF (congestive heart failure) Priority: Primary Status: Chronic (2) Hyponatremia Priority: Secondary Status: Acute (3) Anemia Priority: Secondary Status: Acute (4) Hematuria Priority: Secondary Status: Acute (5) Weakness Priority: Secondary Status: Acute - Respiratory Orders Smoking Cessation: Smoking cessation has been advised. For more information, call the [place] Tobacco Quit Line at 0-295-DHTW-NOW. - Diet/Nutrition Diet/Nutrition Orders: Cardiac - Activity Activity Orders: Walker - Services Needed Following services are medically necessary services: Nursing, Home Health Aide, Physical Therapy, Occupational Therapy - Transfer Medications Prescriptions: Bumetanide [Bumex] 1 mg PO DAILY #30 tablet Digoxin [Lanoxin] 0.125 mg PO DAILY #30 tablet Finasteride [Proscar] 5 mg PO DAILY #30 tablet Isosorbide MONOnitrate (24 HR) [Imdur] 60 mg PO DAILY #30 tab.er.24h Losartan [Cozaar] 25 mg PO DAILY #30 tablet Metoprolol XL (24 HR) Succ [Toprol Xl] 25 mg PO DAILY #30 tab.er.24h Potassium Chloride 10 meq PO DAILY #30 tab.er.prt Tamsulosin [Flomax] 0.8 mg PO DAILY #60 capsule Home Medications: Aspirin [Lo-Dose Aspirin EC] 81 mg PO DAILY 12/20/16 [History] Atorvastatin [Lipitor] 40 mg PO HS 12/20/16 [History] Ferrous Sulfate [Iron] 325 mg PO DAILY 12/20/16 [History] Ondansetron HCl [Zofran] 4 mg PO TID #15 tablet 12/07/17 [Rx] Bumetanide [Bumex] 1 mg PO DAILY 365 Days tablet 12/14/17 [Rx] Finasteride [Proscar] 5 mg PO DAILY 365 Days tablet 12/14/17 [Rx] Bumetanide [Bumex] 1 mg PO DAILY #30 tablet 12/21/17 [Rx] Digoxin [Lanoxin] 0.125 mg PO DAILY #30 tablet 12/21/17 [Rx] Ferrous Sulfate 325 mg PO DAILY@0800 tablet 12/21/17 [Rx] Finasteride [Proscar] 5 mg PO DAILY #30 tablet 12/21/17 [Rx] Isosorbide MONOnitrate (24 HR) [Imdur] 60 mg PO DAILY #30 tab.er.24h 12/21/17 [ Rx] Losartan [Cozaar] 25 mg PO DAILY #30 tablet 12/21/17 [Rx] Metoprolol XL (24 HR) Succ [Toprol Xl] 25 mg PO DAILY #30 tab.er.24h 12/21/17 [ Rx] Potassium Chloride 10 meq PO DAILY #30 tab.er.prt 12/21/17 [Rx] Tamsulosin [Flomax] 0.8 mg PO DAILY #60 capsule 12/21/17 [Rx] Allergies/Adverse Reactions: 3 Allergy/AdvReac Type Severity Reaction Status Date / Time codeine Allergy Itching Verified 12/11/17 01:59 Certification: Further, I certify that my clinical findings support that this patient is homebound (i.e. absences from home require considerable and taxing effort and are for medical reasons or anabaptist services or infrequently or short duration when for other reasons) because: Homebound Reason: Leaving home requires considerable and taxing effort due to condition (End-stage CHF) Attestation: My signature below is to certify that this patient is under my care and that I, or nurse practitioner, or a physician's farm assistant working with me, has a face-to -face encounter with this patient.
== END 2017-12-21 14:00 | disposition home health service (06) | DRG 945 ==
LOC: INPPIK 14:12
PROVIDERS: ADMIT Internal Medicine; ATTEND Internal Medicine